=== PATIENT | male | born 1940 | race Caucasian/White ===

== ENCOUNTER → 2017-09-21 | Outpatient (CLI) | payer MEDICARE ==
[~2017-09-21] MED LIST: ACE325 PO; ACET-1748 PO; ACET-2146 PO; ADV250/50 INH; AMO500 PO; ASPI-757 PO; ATOR40TA24 PO; ATR10 PO; CEP500 PO; CHOL400C10 PO; CLO75 PO; DICL100G39 TP; ESOM40CA42 PO; FLUINH INH; FLUT16SP20 NS; FLUT1DIS27 IH; FLUT1DIS28 IH; LEVA15HF IH; LEVO750T44 PO; LOR5 PO; LOR5/325 PO; METH4TAB66 PO; METO25TA23 PO; MOM PO; MON10 PO; ONDA4TAB PO; PER PO; PRE10 PO; PRE20 PO; SAL50R IH; TAM4 PO
--- NOTE | 2017-09-25 14:56 | RT HOLTER TEST ---
FACILITY: [facility] PATIENT NAME: DIANE THOMSON : [id number] MR: [id number] V: [id number] EXAM DATE: ORDERING PHYSICIAN: SIMONE TRAN TECHNOLOGIST: SERVANDO Hook-up date: 2017-09-21 10:09:00 Duration: 24:08:00 Test Indications: CHEST PAIN Medications: [id number] QRS complexes 575 Ventricular ectopics which represent <1 % of total QRS comp. 65 Supraventricular ectopics which represent <1 % of total QRS comp. * Paced QRS complexes which represent % of total QRS comp. VENTRICULAR ECTOPY 565 Isolated 0 Bigeminal Cycles 5 Couplets 0 Runs 0 Beats in Runs * Beats LONGEST at * BPM at :: -- * Beats FASTEST at * BPM at :: -- SUPRAVENTRICULAR ECTOPY 50 Isolated 2 Couplets 3 Runs 11 Beats in Runs 5 Beats LONGEST at 104 BPM at 22:03:49 2017-09-21 3 Beats FASTEST at 168 BPM at 08:32:11 2017-09-22 HEART RATES 59 MIN at 22:03:56 2017-09-21 81 AVG 123 MAX at 08:32:11 2017-09-22 LONGEST RR 1.664 secs at 06:24:27 2017-09-22 S-T LEVELS Channel 1 -12.800 mm MIN at 10:09:00 2017-09-21 -12.800 mm MAX at 10:09:00 2017-09-21 Channel 2 -12.800 mm MIN at 10:09:00 2017-09-21 -12.800 mm MAX at 10:09:00 2017-09-21 Channel 3 -12.800 mm MIN at 10:09:00 2017-09-21 -12.800 mm MAX at 10:09:00 2017-09-21 Sinus rhythm Premature supraventricular complexes Premature ventricular complexes Confirmed by BRADLEY BOOTH ([id number]) on 09/25/2017 2:55:28 PM Referred By: Overread By: BRADLEY BOOTH
== END ==
LOC: RESP 06:45
PROVIDERS: ATTEND Internal Medicine Cardiovascular Disease
DX: I25.119 Atherosclerotic heart disease of native coronary artery with unspecified angina pectoris (principal); R00.2 Palpitations
CPT/HCPCS: 93225; 93226

== ENCOUNTER → 2017-09-29 | Outpatient (CLI) | payer MEDICARE ==
[~2017-09-29] MED LIST changes: +REGADENOSON 0.4 MG/5 ML SYR ONE
--- NOTE | 2017-09-29 14:24 | RADIOLOGY IMAGING REPORT ---
FACILITY: [facility] [place] PATIENT NAME: José Antonio Barros : 1940 MR: [id number] V: [id number] EXAM DATE: ORDERING PHYSICIAN: SIMONE TRAN TECHNOLOGIST: Location: [facility] Patient: José Antonio Barros : 1940 Visit/Account:[id number] Date of Sevice: 09/29/2017 EXAMINATION: Single isotope SPECT imaging with regadenoson infusion and gated SPECT imaging. DATE OF EXAMINATION: 09/29/2017. DATE OF INTERPRETATION: 09/29/2017. REQUESTING PHYSICIAN: SIMONE TRAN. INDICATION: The patient is a 76-year-old male evaluated for CAD. PROCEDURE: After informed consent the patient received an intravenous injection of 12.5 mCi of Tc-99 m sestamibi followed at an appropriate time interval by rest imaging. The patient then subsequently received an intravenous infusion of 0.4 mg of regadenoson per protocol without complication. Resting heart rate was 68 bpm with a peak heart rate of 87 bpm. Blood pressure at rest was 117 / 84 and fol lowing infusion was 117 / 84. Baseline EKG demonstrates normal sinus rhythm. There were no EKG randhawa ges of ischemia following infusion. Symptoms were nonspecific. The patient then received an intrave nous injection of 30.6 mCi of Tc-99m sestamibi followed by stress imaging. RAW DATA: Examination of the summed raw data revealed a good quality study. MYOCARDIAL PERFUSION: The tomographic images demonstrate inferolateral septal defect at rest and str ess but does improve with prone imaging. Still a mild amount of decreased uptake in the inferior wall despite prone imaging which may suggest mild inferior defect that is fixed. GATED IMAGES: The gated images demonstrate normal wall motion, ejection fraction 57%. IMPRESSION: 1. Good quality study. 2. Probably normal myocardial perfusion scan. Small, mild inferior defect does not improve totally w ith prone imaging does not appear to have significant reversible ischemia. 3. Normal LV systolic function; LVEF 57%. 4. Based on the results of this exam, the patient appears to be at low risk for future cardiovascular events, but remains intermediate risk due to history of CAD. Report Dictated By: uMmtaz Norht at 09/29/2017 2:13 PM Report E-Signed By: Mumtaz North at 09/29/2017 2:20 PM WSN:[id number]
== END ==
LOC: NUC 01:12
PROVIDERS: ATTEND Internal Medicine Cardiovascular Disease
DX: I25.119 Atherosclerotic heart disease of native coronary artery with unspecified angina pectoris (principal)
CPT/HCPCS: 78452; 93005; A9500; J2785; 93017

== ENCOUNTER 2018-03-05 04:57 | Emergency (ER) | payer MEDICARE ==
[~2018-03-05 04:57] MED LIST changes: -REGADENOSON 0.4 MG/5 ML SYR ONE
[2018-03-05] MEDS ORDERED: NS(*) 0.9% 1000 ML BAG 1,000 ML IV ONE (05:16)
--- NOTE | 2018-03-05 05:16 | ER Report ---
History and Physical Time Seen By MD: 05:00 (LYDIA MCARTHUR MD) HPI/ROS CHIEF COMPLAINT: abdominal pain, nausea HISTORY OF PRESENT ILLNESS: This is a 77 year old male. He has been feeling some abdominal pain in the left lower abdomen and left flank and having nausea with vomiting this morning. He started feeling the pain this morning. He has a history of recent urinary tract infection, treated with Cipro as an outpatient. He has had normal urination since then and has no dysuria, frequency or urgency at this time. He has had normal bowels. Having nausea and vomiting at this time as well. Feels a little shortness of breath at this time. Has asthma. Has sleep apnea. Has been having fevers this morning as well. No chest pain. REVIEW OF SYSTEMS: Constitutional: As above. Eyes: No vision changes. ENT: No sore throat. No congestion. Cardiovascular: No palpitations. Respiratory: No cough. Gastrointestinal: As above. Genitourinary: As above. Musculoskeletal: No extremity pain. Skin: No rashes. Neurological: Feels weak, but generalized. (LYDIA MCARTHUR MD) Allergies: Coded Allergies: clarithromycin (Verified Allergy, Intermediate, NAUSEA/VOMITING, 03/05/18) Home Meds Active Scripts Doxycycline Hyclate (DOXYCYCLINE HYCLATE) 100 Mg Capsule, 100 MG PO BID for 7 Days, #14 CAPSULE Prov:JUNG VARGAS MD 03/05/18 Reported Medications Fluticasone/Salmeterol (ADVAIR 250-50 DISKUS) 1 Each Disk.w.dev, 1 EACH IH 06/13/14 Aspirin (ASPIRIN) 325 Mg Tablet, 325 MG PO DAILY 07/13/13 Metoprolol Succinate (METOPROLOL SUCCINATE) 25 Mg Tab.er.24h, 12.5 TAB PO QDAY 07/12/13 Cholecalciferol (Vitamin D3) (VITAMIN D) 400 Unit Capsule, 56761 UNIT PO month 07/12/13 Atorvastatin Calcium (Lipitor) 40 Mg Tablet, 40 MG PO QHS TAKE AT BEDTIME. 07/29/10 Montelukast Sodium (Singulair) 10 Mg Tab, 10 MG PO QHS 07/15/10 Tamsulosin Hcl (Flomax) 0.4 Mg Cap, 0.4 MG PO HS 07/29/10 Reviewed Nurses Notes: Yes (LYDIA MCARTHUR MD) Hx Smoking: No Exposure to Second Hand Smoke?: No Hx Substance Use Disorder: No Hx Alcohol Use: Yes (OCCASIONALLY) (LYDIA MCARTHUR MD) Constitutional Vital Sign - Last 24 Hours 03/05/18 03/05/18 03/05/18 03/05/18 05:04 05:12 05:27 05:29 Temp 99.2 Pulse 84 83 82 76 Resp 24 16 B/P (MAP) 169/97 Pulse Ox 92 94 98 O2 Delivery Room Air 03/05/18 03/05/18 03/05/18 03/05/18 05:29 05:30 05:35 05:57 Pulse 84 82 Resp 16 B/P (MAP) 114/77 (89) Pulse Ox 94 O2 Delivery Room Air 03/05/18 03/05/18 03/05/18 03/05/18 06:00 06:12 06:17 06:30 Pulse 81 83 B/P (MAP) 116/72 (87) 120/69 (86) Pulse Ox 91 88 03/05/18 03/05/18 03/05/18 03/05/18 06:32 06:47 07:00 07:30 Pulse 84 84 B/P (MAP) 125/59 (81) 100/72 (81) Pulse Ox 96 91 03/05/18 03/05/18 03/05/18 03/05/18 07:50 08:00 08:05 08:20 Pulse 86 84 88 B/P (MAP) 110/68 (82) Pulse Ox 95 95 96 03/05/18 03/05/18 03/05/18 03/05/18 08:30 08:35 08:50 09:00 Pulse 89 88 B/P (MAP) 105/71 (82) 114/78 (90) Pulse Ox 93 94 (JUNG VARGAS MD) Physical Exam General Appearance: The patient is alert. No acute distress. Eyes: Pupils are equal, round. No pallor, injection or icterus. Reactive to light. ENT: Mucous membranes are a little dry, otherwise normal oral mucosa. Posterior oropharynx is normal. Neck: Supple and non tender. Respiratory: Lungs are clear to auscultation. Cardiovascular: Regular rate and rhythm. No murmurs, gallops or rubs. No edema. Gastrointestinal: Abdomen is soft, discomfort in left side of abdomen, mainly lower quadrant, no focal pain. Nondistended. No rebound or guarding. Normal active bowel sounds. No costovertebral angle tenderness with percussion. Neurological: Alert and oriented x3. No focal neurologic deficits Skin: Warm and dry. No rashes. Musculoskeletal: Extremities are nontender. No tenderness in palpation of the cervical, thoracic and lumbar spine. DIFFERENTIAL DIAGNOSIS: After history and physical exam, differential diagnosis was considered for abdominal pain including but not limited to diverticulitis, colitis, kidney stones and urinary tract infection. ([facility] MD) Medical Decision Making Data Points Result Diagram: 03/05/18 0503/05/18 05 Laboratory Hematology Test 03/05/18 05:20 03/05/18 06:35 03/05/18 09:55 Red Blood Count 5.51 M/uL (4.00-5.60) Mean Corpuscular Volume 88.2 fL (80.0-96.0) Mean Corpuscular Hemoglobin 30.6 pg (26.0-33.0) Mean Corpuscular Hemoglobin Concent 34.7 g/dL (32.0-36.0) Red Cell Distribution Width 15.1 % (11.5-14.5) Mean Platelet Volume 8.8 fL (7.2-11.1) Neutrophils (%) (Auto) 84.7 % (39.4-72.5) Lymphocytes (%) (Auto) 8.1 % (17.6-49.6) Monocytes (%) (Auto) 5.1 % (4.1-12.4) Eosinophils (%) (Auto) 1.6 % (0.4-6.7) Basophils (%) (Auto) 0.5 % (0.3-1.4) Nucleated RBC Relative Count (auto) 0.0 /100WBC Neutrophils # (Auto) 7.8 K/uL (2.0-7.4) Lymphocytes # (Auto) 0.7 K/uL (1.3-3.6) Monocytes # (Auto) 0.5 K/uL (0.3-1.0) Eosinophils # (Auto) 0.2 K/uL (0.0-0.5) Basophils # (Auto) 0.0 K/uL (0.0-0.1) Nucleated RBC Absolute Count (auto) 0.00 K/uL Sodium Level 142 mmol/L (137-145) Potassium Level 3.6 mmol/L (3.5-5.0) Chloride Level 108 mmol/L (98-107) Carbon Dioxide Level 19 mmol/L (22-30) Blood Urea Nitrogen 24 mg/dl (9-21) Creatinine 1.10 mg/dl (0.66-1.25) Glomerular Filtration Rate Calc > 60.0 Random Glucose 105 mg/dl (75-110) Calcium Level 9.3 mg/dl (8.4-10.2) Total Bilirubin 1.3 mg/dl (0.2-1.3) Aspartate Amino Transf (AST/SGOT) 31 U/L (0-35) Alanine Aminotransferase (ALT/SGPT) 29 U/L (0-56) Alkaline Phosphatase 122 U/L (0-126) C-Reactive Protein 1.7 mg/dl (<1.0) Total Protein 6.7 gm/dl (6.3-8.2) Albumin 3.8 g/dl (3.5-5.0) Amylase Level 75 U/L (0-110) Lipase 114 U/L (23-300) Lactate 1.1 mmol/L (0.7-2.1) Urine Color Yellow Urine Clarity Clear Urine pH 5.0 pH (4.8-9.5) Urine Specific [place] 1.057 Urine Protein Negative mg/dL (NEGATIVE) Urine Glucose (UA) Negative mg/dL (NEGATIVE) Urine Ketones Negative mg/dL (NEGATIVE) Urine Blood Negative (NEGATIVE) Urine Nitrite Negative (NEGATIVE) Urine Bilirubin Negative (NEGATIVE) Urine Urobilinogen 4.0 mg/dL (0.2-1.9) Urine Leukocyte Esterase Moderate (NEGATIVE) Urine RBC 4 /HPF (0-2/HPF) Urine WBC 12 /HPF (0-5/HPF) Urine Squamous Epithelial Cells None /LPF (</=FEW) Urine Bacteria Negative /HPF (NONE-FEW) Urine Mucus Few /HPF (NONE-FEW) Chemistry Test 03/05/18 05:20 03/05/18 06:35 03/05/18 09:55 White Blood Count 9.2 k/uL (4.5-11.0) Red Blood Count 5.51 M/uL (4.00-5.60) Hemoglobin 16.9 g/dL (14.0-18.0) Hematocrit 48.7 % (42.0-52.0) Mean Corpuscular Volume 88.2 fL (80.0-96.0) Mean Corpuscular Hemoglobin 30.6 pg (26.0-33.0) Mean Corpuscular Hemoglobin Concent 34.7 g/dL (32.0-36.0) Red Cell Distribution Width 15.1 % (11.5-14.5) Platelet Count 167 K/uL (150-450) Mean Platelet Volume 8.8 fL (7.2-11.1) Neutrophils (%) (Auto) 84.7 % (39.4-72.5) Lymphocytes (%) (Auto) 8.1 % (17.6-49.6) Monocytes (%) (Auto) 5.1 % (4.1-12.4) Eosinophils (%) (Auto) 1.6 % (0.4-6.7) Basophils (%) (Auto) 0.5 % (0.3-1.4) Nucleated RBC Relative Count (auto) 0.0 /100WBC Neutrophils # (Auto) 7.8 K/uL (2.0-7.4) Lymphocytes # (Auto) 0.7 K/uL (1.3-3.6) Monocytes # (Auto) 0.5 K/uL (0.3-1.0) Eosinophils # (Auto) 0.2 K/uL (0.0-0.5) Basophils # (Auto) 0.0 K/uL (0.0-0.1) Nucleated RBC Absolute Count (auto) 0.00 K/uL Glomerular Filtration Rate Calc > 60.0 Calcium Level 9.3 mg/dl (8.4-10.2) Total Bilirubin 1.3 mg/dl (0.2-1.3) Aspartate Amino Transf (AST/SGOT) 31 U/L (0-35) Alanine Aminotransferase (ALT/SGPT) 29 U/L (0-56) Alkaline Phosphatase 122 U/L (0-126) C-Reactive Protein 1.7 mg/dl (<1.0) Total Protein 6.7 gm/dl (6.3-8.2) Albumin 3.8 g/dl (3.5-5.0) Amylase Level 75 U/L (0-110) Lipase 114 U/L (23-300) Lactate 1.1 mmol/L (0.7-2.1) Urine Color Yellow Urine Clarity Clear Urine pH 5.0 pH (4.8-9.5) Urine Specific [place] 1.057 Urine Protein Negative mg/dL (NEGATIVE) Urine Glucose (UA) Negative mg/dL (NEGATIVE) Urine Ketones Negative mg/dL (NEGATIVE) Urine Blood Negative (NEGATIVE) Urine Nitrite Negative (NEGATIVE) Urine Bilirubin Negative (NEGATIVE) Urine Urobilinogen 4.0 mg/dL (0.2-1.9) Urine Leukocyte Esterase Moderate (NEGATIVE) Urine RBC 4 /HPF (0-2/HPF) Urine WBC 12 /HPF (0-5/HPF) Urine Squamous Epithelial Cells None /LPF (</=FEW) Urine Bacteria Negative /HPF (NONE-FEW) Urine Mucus Few /HPF (NONE-FEW) Urinalysis Test 03/05/18 09:55 Urine Color Yellow Urine Clarity Clear Urine pH 5.0 pH (4.8-9.5) Urine Specific [place] 1.057 Urine Protein Negative mg/dL (NEGATIVE) Urine Glucose (UA) Negative mg/dL (NEGATIVE) Urine Ketones Negative mg/dL (NEGATIVE) Urine Blood Negative (NEGATIVE) Urine Nitrite Negative (NEGATIVE) Urine Bilirubin Negative (NEGATIVE) Urine Urobilinogen 4.0 mg/dL (0.2-1.9) Urine Leukocyte Esterase Moderate (NEGATIVE) Urine RBC 4 /HPF (0-2/HPF) Urine WBC 12 /HPF (0-5/HPF) Urine Squamous Epithelial Cells None /LPF (</=FEW) Urine Bacteria Negative /HPF (NONE-FEW) Urine Mucus Few /HPF (NONE-FEW) (JUNG VARGAS MD) EKG/Imaging Imaging ACUTE ABDOMEN SERIES 3 VIEW HISTORY: Blood in urine. Abdominal pain. Nausea. COMPARISON: Most recent chest x-rays 09/13/2017. Prior abdominal series 2013. TECHNIQUE: PA upright view of the chest, AP supine and AP upright views of the abdomen. Chest: There are new opacities throughout the left lung and in the right upper lung. The cardiac and mediastinal silhouettes are within normal limits. Bones and soft tissues are unremarkable. Abdomen: There is a small to moderate hiatal hernia, unchanged. The distribution of bowel gas is normal, with bowel in all four quadrants as well as centrally. No free air. There is a loop of bowel in the midline upper abdomen that appears to be small bowel, and if so, it is dilated. There is moderate to severe degenerative change of the lumbar spine. There is a slight rightward curvature of the thoracolumbar spine, and there is a mild leftward curvature of the lumbar spine. No convincing renal or ureteral calculus. IMPRESSION: 1. New left greater than right airspace opacities. Findings may be due to pneumonia, but follow-up chest x-ray to ensure clearing is recommended. 2. Small to moderate hiatal hernia, unchanged. 3. There is a gas-filled loop of what appears to be dilated small bowel in the midline mid to upper abdomen. If there is clinical concern for small bowel obstruction, CT scan is recommended for further evaluation. Report Dictated By: Rosibel Egan at 03/05/2018 5:55 AM (LYDIA MCARTHUR MD) ED Course/Re-evaluation Clinical Indication for ER IV: Hydration, IV Access ED Course Patient was given a liter of normal saline and some Zofran, 4 mg IV. [place] a lot better after these medications. He did not want any IV pain medications at this time. He did receive a breathing treatment with albuterol and felt a little bit better afterwards. Labs were obtained with IV draw, but delay in transfer to the labs of these were redrawn. Abdominal 3 view shows changes in the lungs consistent with possible infiltrates mainly on the left side as well as dilated loop of small bowel. CT scan of the chest, abdomen and pelvis was ordered. (LYDIA MCARTHUR MD) Re-evaluation 03/05/2018 10:33:34 am I took this patient this morning from Dr. Chou CT scan, urinalysis, and reevaluation. Both his CT scan and chest x-ray are consistent with a left sided pneumonia. Rocephin and his CT scan were incidental nodules which I discussed with the patient. A UA was normal. He did have hematuria and left-sided abdominal pain upon arrival, so possibly passed a small kidney stone. He was given 1 g of Rocephin for his pneumonia, and I will discharge him with doxycycline. I counseled him to drink plenty of fluids with the doxycycline especially given his esophagitis seen on CT scan. He states that he is feeling much better than when he arrived, and will follow up with Bernadette Griffith this week. Decision to Disposition Date: Mar 05, 2018 Decision to Disposition Time: 10:36 (JUNG VARGAS MD) Depart Departure Latest Vital Signs Vital Signs Date Time Temp Pulse Resp B/P (MAP) Pulse Ox O2 Delivery O2 Flow Rate FiO2 03/05/18 09:00 114/78 (90) 03/05/18 08:50 88 94 03/05/18 05:35 16 03/05/18 05:29 Room Air 03/05/18 05:04 99.2 (JUNG VARGAS MD) Impression: Primary Impression: Community acquired pneumonia Condition: Improved Disposition: HOME OR SELF-CARE New Scripts Doxycycline Hyclate (DOXYCYCLINE HYCLATE) 100 Mg Capsule 100 MG PO BID for 7 Days, #14 CAPSULE Prov: JUNG VARGAS MD 03/05/18 Patient Instructions: Community Acquired Pneumonia (ED) Problem Qualifiers Primary Impression: Community acquired pneumonia Laterality: left Lung location: unspecified part of lung Qualified Codes: J18.9 - Pneumonia, unspecified organism LYDIA MCARTHUR MD Mar 05, 2018 05:16 JUNG VARGAS MD Mar 05, 2018 10:38
[2018-03-05] MEDS ORDERED: ONDANSETRON 4 MG/2 ML VIAL IVP ONE (05:20)
[2018-03-05] MEDS ORDERED: ALBUTEROL 2.5 MG/3 ML NEB NEB ONE (05:20)
--- NOTE | 2018-03-05 06:07 | RADIOLOGY IMAGING REPORT ---
FACILITY: [facility] PATIENT NAME: José Antonio Barros : 1940 MR: [id number] V: [id number] EXAM DATE: ORDERING PHYSICIAN: LYDIA MCARTHUR TECHNOLOGIST: [place] [facility] [place] Patient: José Antonio Barros : 1940 Visit/Account:[id number] Date of Sevice: 03/05/2018 ACUTE ABDOMEN SERIES 3 VIEW HISTORY: Blood in urine. Abdominal pain. Nausea. COMPARISON: Most recent chest x-rays 09/13/2017. Prior abdominal series 06/13/2014. TECHNIQUE: PA upright view of the chest, AP supine and AP upright views of the abdomen. Chest: There are new opacities throughout the left lung and in the right upper lung. The cardiac and mediastinal silhouettes are within normal limits. Bones and soft tissues are unremarkable. Abdomen: There is a small to moderate hiatal hernia, unchanged. The distribution of bowel gas is norm al, with bowel in all four quadrants as well as centrally. No free air. There is a loop of bowel in t he midline upper abdomen that appears to be small bowel, and if so, it is dilated. There is moderate to severe degenerative change of the lumbar spine. There is a slight rightward curv ature of the thoracolumbar spine, and there is a mild leftward curvature of the lumbar spine. No conv incing renal or ureteral calculus. IMPRESSION: 1. New left greater than right airspace opacities. Findings may be due to pneumonia, but follow-up ch est x-ray to ensure clearing is recommended. 2. Small to moderate hiatal hernia, unchanged. 3. There is a gas-filled loop of what appears to be dilated small bowel in the midline mid to upper a bdomen. If there is clinical concern for small bowel obstruction, CT scan is recommended for further evaluation. Report Dictated By: Rosibel Egan at 03/05/2018 5:55 AM Report E-Signed By: Rosibel Egan at 03/05/2018 6:01 AM WSN:[id number]
[2018-03-05] MEDS ORDERED: IOPAMIDOL 76% 75 ML INFUS BTL 75 ML ONE (06:35)
[2018-03-05 06:36] LABS: PLATELET COUNT, AUTOMATED 167 K/uL (150-450)
--- NOTE | 2018-03-05 08:21 | RADIOLOGY IMAGING REPORT ---
FACILITY: [facility] - [place] PATIENT NAME: José Antonio Barros : 1940 MR: [id number] V: [id number] EXAM DATE: ORDERING PHYSICIAN: LYDIA MCARTHUR TECHNOLOGIST: Location: [facility] Patient: José Antonio Barros : 1940 Visit/Account:[id number] Date of Sevice: 03/05/2018 CHEST/AB/PELV W/CONTRAST HISTORY: Abnormal chest x-ray and abdominal x-rays. COMPARISON: Abdominal series earlier same day. No prior abdominal CT. There are prior chest CTs from 07/13/2013 and studies dating to 09/04/2009. TECHNIQUE: Axial images were obtained from the thoracic inlet through the symphysis pubis with intrav enous contrast. Sagittal and coronal reformats were performed. One of the following dose optimization techniques was utilized in the performance of this exam: Autom ated exposure control; adjustment of the mA and/or kV according to the patient's size; or use of an i terative reconstruction technique. Specific details can be referenced in the facility's radiology CT exam operational policy. CONTRAST: 75 mL IV [id number]. FINDINGS: Thoracic inlet: Normal. Thoracic aorta: No aneurysm or dissection. There is mild atherosclerosis of the thoracic aorta. Heart / Pericardium: The heart is normal. There is no pericardial effusion. There is mild three-vesse l coronary artery calcification. Mediastinum / Mandy: Normal mediastinum. No lymphadenopathy. Lungs / Pleura: No pleural effusion. There is respiratory motion artifact. There are somewhat nodular confluent opacities in the left upper lobe and lingula, corresponding to findings on chest x-ray, ne w. There is a 7 x 6 mm pulmonary nodule in the right upper lobe (image 32 series 4) that corresponds to the findings on chest x-ray, new. There is mild atelectasis. No pneumothorax. The airways are norm al. Liver: Normal. Gallbladder/biliary: Normal. Pancreas: Normal. Spleen: Normal. Adrenals: Normal. Kidneys/ureters/bladder: There are too small to characterize low attenuating lesions within both kidn eys that statistically are likely to represent renal cysts. There are bilateral parapelvic cysts. The ureters and bladder are normal. GI/mesentery/peritoneal cavity: There is diffuse long segment esophageal thickening. There is a small to moderate size type III hiatal hernia. There is no bowel obstruction. The gas filled loop of bowel identified on abdominal x-ray corresponds to redundant sigmoid colon rather than small bowel. There is no wall thickening or pericolonic stranding. There is no intra-abdominal free air or free fluid. Vessels: There is moderate atherosclerotic disease without aneurysm. No dissection. Nodes: Normal. Pelvis: There are coarse prostate calcifications. No free fluid. There are small bilateral fat-contai dre inguinal hernias. Bones/vertebra/soft tissues: There is moderate to severe degenerative change of the lower thoracic an d lumbar spine. There are milder degenerative changes throughout the rest of the thoracic and lumbar spine. There are bilateral L5 pars defects and there is 5 mm anterolisthesis of L5 on S1. There is 3 mm retr olisthesis of T12 on L1, unchanged. There are numerous Schmorl nodes deforming vertebral endplates. T here is mild wedging of T12, unchanged. There is a slight rightward curvature of the thoracolumbar sp ine, and there is a mild leftward curvature of the lumbar spine. IMPRESSION: 1. Confluent nodular opacities in the left upper lobe and lingula and 7 mm average size pulmonary nod ule in the right upper lung corresponding to findings on the chest x-ray and are new from previous est x-ray and CTs. The left-sided opacities are likely due to pneumonia, and the right may be the zari e process, but a follow-up chest x-ray is recommended in 6-8 weeks after treatment to ensure resoluti on. 2. Diffuse esophageal thickening, likely due to esophagitis, and potentially on the basis of gastroes ophageal reflux. 3. Small moderate type III hiatal hernia. 4. No bowel obstruction. The gas filled loop of bow l identified on abdominal x-ray is the redundant sigmoid colon. 5. Bilateral L5 pars defects and 5 mm anterolisthesis of L5 on S1. 6. Three-vessel coronary artery calcification, mild.Report Dictated By: Rosibel Egan at 03/05/2018 7:59 AM Report E-Signed By: Rosibel Egan at 03/05/2018 8:17 AM WSN:[id number]
[2018-03-05] MEDS ORDERED: cefTRIAXone 1 GM VIAL IVP ONE (09:05)
[2018-03-05 10:30] VITALS: BP 102/75
[2018-03-05] MEDS ORDERED: DOXY-181 PO (10:37)
== END 2018-03-05 10:46 | disposition home or self-care (01) ==
LOC: ER 05:10
DX: J18.9 Pneumonia, unspecified organism (principal)
CPT/HCPCS: 36415; 71260; 74022; 74177; 81001; 82150; 83605; 83690; 85025; 86140; 94640; 96361; 96374; 96375; 99284; J0696; J2405; J7030; J7613; Q9967; 82040; 82247; 82310; 82374; 82435; 82565; 82947; 84075; 84132; 84155; 84295; 84450; 84460; 84520

== ENCOUNTER → 2018-03-28 | Outpatient (CLI) | payer MEDICARE ==
[~2018-03-28] MED LIST changes: +DOXY-181 PO
== END ==
LOC: LAB 10:06
PROVIDERS: ATTEND Urology
DX: N39.0 Urinary tract infection, site not specified (principal); B96.89 Other specified bacterial agents as the cause of diseases classified elsewhere
CPT/HCPCS: 81001; 87077; 87088; 87186

== ENCOUNTER → 2018-04-17 | Outpatient (CLI) | payer MEDICARE ==
--- NOTE | 2018-04-17 08:40 | RADIOLOGY IMAGING REPORT ---
FACILITY: [facility] PATIENT NAME: José Antonio Barros : 1940 MR: [id number] V: [id number] EXAM DATE: ORDERING PHYSICIAN: AMADOR CROW TECHN[place]IST: [place] [facility] [place] [place] Bar[place] : 1940 Visit/Account:[id number] Date of Sevice: 04/17/2018 CHEST PA AND LAT Indication: Pulmonary pneumonia 6 weeks ago, right 7 mm pulmonary nodule. Comparison: CT chest 03/05/2018 Findings: Lungs: There is hyperinflation finding the diaphragms. The previously seen 7 mm pulmonary nodule on chest CT is not identified on this chest x-ray. The previously seen left upper lobe airspace opacity has resolved. Mediastinum/pulmonary vasculature: Large hiatal hernia is seen. Heart size is normal. Bones/soft tissues: Normal. IMPRESSION: 1. No evidence of pneumonia, improved from the prior study. 2. The previously seen right-sided pulmonary nodule on chest CT is not seen on this study. Recommen d follow-up chest CT for the pulmonary nodule in 6 months. 3. Findings consistent with COPD. 4. Large gastric hiatal hernia. Report Dictated By: Timothy Bello at 04/17/2018 8:30 AM Report E-Signed By: Timothy Bello at 04/17/2018 8:37 AM WSN:[id number]
== END ==
LOC: RAD 08:00
PROVIDERS: ATTEND Nurse Practitioner Family
DX: J44.9 Chronic obstructive pulmonary disease, unspecified (principal); K44.9 Diaphragmatic hernia without obstruction or gangrene
CPT/HCPCS: 71046

== ENCOUNTER → 2018-07-11 | Outpatient (CLI) | payer MEDICARE | LOC: LAB 08:05 | PROVIDERS: ATTEND Urology | DX: R97.20 Elevated prostate specific antigen [PSA] (principal) | CPT/HCPCS: 36415; 84153 ==

== ENCOUNTER → 2018-07-12 | Outpatient (CLI) | payer MEDICARE | LOC: LAB 09:57 | PROVIDERS: ATTEND Urology | DX: N39.0 Urinary tract infection, site not specified (principal) | CPT/HCPCS: 81001; 87088 ==

== ENCOUNTER → 2018-12-22 | Outpatient (CLI) | payer MEDICARE ==
[~2018-12-22] MED LIST changes: +IOPAMIDOL 76% 150 ML INFUS BTL 150 ML ONE
--- NOTE | 2018-12-22 10:21 | RADIOLOGY IMAGING REPORT ---
FACILITY: [facility] [place] PATIENT NAME: José Antonio Barros : 1940 MR: [id number] V: [id number] EXAM DATE: ORDERING PHYSICIAN: ERVIN PICKERING TECHNOLOGIST: Location: [facility] Patient: José Antonio Barros : 1940 Visit/Account:[id number] Date of Sevice: 12/22/2018 EXAMINATION: CT Chest With Contrast 12/22/2018 8:00 AM HISTORY: Solitary pulmonary nodule TECHNIQUE: Spiral scan was obtained through the chest during injection of nonionic iodinated intrav enous contrast. Contrast: 75 mL of IV Isovue 370. One of the following dose optimization techniques was utilized in the performance of this exam: Autom ated exposure control; adjustment of the mA and/or kV according to the patient's size; or use of an i terative reconstruction technique. Specific details can be referenced in the facility's radiology C T exam operational policy. COMPARISON STUDIES: 03/05/2018, CTA chest 07/13/2013.. FINDINGS: Lungs / pleura: Airspace opacity in the left upper lobe has resolved. 7 mm right upper lobe micronod ule has also resolved. No significant new finding. Mediastinum / shira: negative Heart / pericardium: negative Vessels: Atherosclerotic calcifications are mild. Musculoskeletal / Body wall: Degenerative changes in the spine. Stable mild vertebral body wedging a t several levels. Lymph node assessment: negative Lower neck: negative Upper abdomen: Moderate hiatal hernia. IMPRESSION: Right upper lobe pulmonary nodule and left upper lobe infiltrates demonstrated 03/15/2018 have resolve d. Report Dictated By: Timothy Sosa MD at 12/22/2018 10:09 AM Report E-Signed By: Timothy Sosa MD at 12/22/2018 10:17 AM WSN:[email or web address]
== END ==
LOC: CT 01:28
PROVIDERS: ATTEND Nurse Practitioner Family
DX: K44.9 Diaphragmatic hernia without obstruction or gangrene (principal); I25.10 Atherosclerotic heart disease of native coronary artery without angina pectoris
CPT/HCPCS: 71260; Q9967